=== PATIENT | female | born 1950 | race Caucasian/White ===

== ENCOUNTER 2018-10-03 12:24 | Outpatient (CLI) | payer MEDICARE, OTHER | END 2018-10-03 23:59 | disposition home or self-care (01) | LOC: CARD DIAG 12:24 | PROVIDERS: ATTEND Internal Medicine Cardiovascular Disease | DX: I08.0 Rheumatic disorders of both mitral and aortic valves (principal); I10 Essential (primary) hypertension; Q21.1 Atrial septal defect; Z87.891 Personal history of nicotine dependence | CPT/HCPCS: 93306 ==

== ENCOUNTER 2021-09-06 10:00 | Day surgery (SDC) | payer MEDICARE, OTHER ==
[2021-09-05 10:09] LABS: CLARITY,URINE CLEAR (Clear); GLUCOSE, URINE NEGATIVE (Neg); KETONES,URINE NEGATIVE (Neg); LEUKOCYTE ESTERASE ,URINE NEGATIVE (Neg); NITRITES, URINE NEGATIVE (Neg); OCCULT BLOOD,URINE NEGATIVE (Neg); PROTEIN,URINE NEGATIVE (Neg); UROBILINOGEN,URINE 0.2 E.U/dL (0.2-1.0)
[2021-09-05 10:11] LABS: ALBUMIN 3.1 G/DL (3.4-5.0); ALBUMIN/GLOBULIN RATIO 0.6 (1.1-1.5); ALKALINE PHOSPHATASE 106 IU/L (46-116); BLOOD UREA NITROGEN 14 MG/DL (7-18); BUN/CREATININE RATIO 18.2 (6.6-38.0); CALCIUM 9.4 MG/DL (8.5-10.1); CHLORIDE 99 MMOL/L (99-107); CREATININE 0.77 MG/DL (0.40-0.90); PRE OP ALT 27 U/L (30-65); PRE OP ANION GAP 10 (8-16); PRE OP AST 20 U/L (10-37); PRE OP BILIRUB, TOTAL 0.2 MG/DL (0.0-1.0); PRE OP GLUCOSE 92 MG/DL (70-104); PRE OP SODIUM 134 MMOL/L (135-145); TOTAL CARBON DIOXIDE 24.8 MMOL/L (24-32); TOTAL PROTEIN 8.2 G/DL (6.4-8.2); eGFR 74 ML/MIN
[2021-09-05 10:12] LABS: BASOPHILS % (AUTO) 0.6 % (0-1); EOSINOPHILS % (AUTO) 0.7 % (0-6); LYMPHOCYTES # (AUTO) 0.8 X10'3 (1.1-4.8); LYMPHOCYTES % (AUTO) 11.7 % (21-51); MEAN CORPUSCULAR HEMOGLOBIN 30.6 PG (27.0-31.0); MEAN CORPUSCULAR HGB CONC 33.8 g/dL (33.0-36.5); MEAN CORPUSCULAR VOLUME 90.5 FL (78-98); MEAN PLATELET VOLUME 10.8 FL (7.4-10.4); MONOCYTES # (AUTO) 0.3 X10'3 (0-0.9); MONOCYTES % (AUTO) 4.8 % (2-12); NEUTROPHILS # (AUTO) 5.6 X10'3 (1.8-7.7); NEUTROPHILS % (AUTO) 82.2 % (42-75); PRE OP HEMATOCRIT 35.8 % (35.0-45.0); PRE OP HEMOGLOBIN 12.1 g/dL (12.0-16.0); PRE OP PLATELET COUNT 229 X10'3 (140-440); RED BLOOD COUNT 3.96 X10'6 (4.20-5.60); RED CELL DISTRIBUTION WIDTH 14.7 % (11.5-14.5)
[2021-09-05 10:20] LABS: COLOR,URINE STRAW (Yellow); UA COLLECTION TYPE CLN CATCH MIDSTREAM
[2021-09-05 10:39] LABS: LARGE PLATELETS FEW; PLATELET ESTIMATE NORMAL
[~2021-09-06] VITALS: Ht 162.6 cm; Wt 51.3 kg
[2021-09-06] VITALS (9 sets, daily range): BP systolic 96–198; BP diastolic 56–85
[~2021-09-06 10:00] MED LIST: CLON0.1T2 PO; HYDR-3964 PO; LOSA50TA64 PO; ceFAZolin inj. 2,000 MG in dextrose 5%-water 100 ML IV ONE; famotidine 20mg tablet PO ONE; ringers solution, lacted 1,000 ML IV SCH; vancomycin/NS 1 GM in NS 250 ML IV ONE
[2021-09-06] MEDS ORDERED: vancomycin 1,000mg inj ONE (11:44)
[2021-09-06] MEDS ORDERED: BUPIVAcaine/PF 2.5mg/ml (0.25%) 10ml vial ONE (11:44)
[2021-09-06] MEDS ORDERED: dexamethasone sod phosphate 10mg/ml inj ONE (12:19)
[2021-09-06] MEDS ORDERED: sevoflurane 250ml liquid IH ONE (12:19)
[2021-09-06] MEDS ORDERED: fentaNYL/PF 50MCG/1 ML 2ML syringe ONE ×2 (12:31→12:49)
[2021-09-06] MEDS ORDERED: midazolam 1 mg/ML 2ml injection ONE (12:32)
[2021-09-06] MEDS ORDERED: LIDOcaine 2% (20mg/ml) 5ml vial ONE (12:41)
[2021-09-06] MEDS ORDERED: propofol inj 20 ML IV ONE (12:41)
[2021-09-06] MEDS ORDERED: ondansetron/PF 4mg/2ml inj ONE (12:45)
[2021-09-06] MEDS ORDERED: hydrALAZINE 20mg/ml inj. IV ONE ×2 (12:55→13:00)
[2021-09-06] MEDS ORDERED: hydrALAZINE 20mg/ml inj. IV PRN (13:00)
[2021-09-06] MEDS ORDERED: morphine 2 MG/ML inj. syringe IV PRN (13:00)
[2021-09-06] MEDS ORDERED: fentaNYL/PF 50MCG/1 ML 2ML syringe IV PRN (13:00)
[2021-09-06] MEDS ORDERED: ondansetron/PF 4mg/2ml inj IV PRN (13:00)
[2021-09-06] MEDS ORDERED: ringers solution, lacted 1,000 ML IV SCH (13:00)
[2021-09-06] MEDS ORDERED: labetalol 5mg/ml 20ml inj. IV PRN (13:00)
[2021-09-06] MEDS ORDERED: HYDR-3965 PO (13:09)
--- NOTE | 2021-09-06 13:20 | NUR ---
Received from OR via , accompanied by Anesthesiologist and report given by Anesthesiolgist. PATIENT A&OX4, DENIES NEEDS, V/S WNL, NEUROVASCULAR CHECKS INTACT, PIV TO LUE 20G, SCD ON, DRESSING.WV W/ DRESSING CDI AT 125 CONTINOUS SUCTION LLE NO LEAKS DETECTED ANKLE AND DRESSING RIGHT ANKLE CDI
[2021-09-06] MEDS: fentaNYL/PF 50MCG/1 ML 2ML syringe IV PRN ×2 (13:27→13:40)
[2021-09-06] MEDS: morphine 4 MG/ML inj SYRINge IV PRN ×2 (13:44→14:01)
--- NOTE | 2021-09-06 14:30 | NUR ---
PATIENT A&OX4, DENIES NEEDS, V/S WNL, NEUROVASCULAR CHECKS INTACT, PIV TO LUE 20G D/C, SCD OFF, DRESSING.WV W/ DRESSING CDI AT 125 CONTINOUS SUCTION LLE NO LEAKS DETECTED ANKLE AND DRESSING RIGHT ANKLE CDI. SHE STATES PAIN UNDER CONTROL. I HAVE REVIEWED D/C INSTRUCTIONS WITH PATIENT AND THEY HAVE VERBALIZED UNDERSTANDING OF INSTRUCTIONS. PATIENT D/C HOME WITH ALL BELONGINGS AND FAMILY GAVE TRANSPORT
== END 2021-09-06 14:30 | disposition home or self-care (01) ==
LOC: PAS 10:00
PROVIDERS: ATTEND Orthopaedic Surgery Orthopaedic Trauma
DX: L03.116 Cellulitis of left lower limb (principal); L97.329 Non-pressure chronic ulcer of left ankle with unspecified severity; L89.500 Pressure ulcer of unspecified ankle, unstageable; I87.2 Venous insufficiency (chronic) (peripheral); G43.909 Migraine, unspecified, not intractable, without status migrainosus; Z79.899 Other long term (current) drug therapy; Z87.891 Personal history of nicotine dependence; Z86.73 Personal history of transient ischemic attack (TIA), and cerebral infarction without residual deficits; Z98.890 Other specified postprocedural states
CPT/HCPCS: 11042; 11045; 36415; 71046; 80053; 81003; 82948; 85025; 87070; 87075; 87077; 87186; 87811; 93005; A6223; J0360; J0690; J1100; J2250; J2270; J2405; J2704; J3010; J3370; J3490; J7030; J7060; J7120; Z7506; Z7512; 85008; 88305; 88312; A4618; A6449; A6550; A7000